=== PATIENT | female | born 1975 | race Caucasian/White ===

== ENCOUNTER 2024-03-24 11:16 | Observation (INO) ==
--- NOTE | 2024-03-24 12:15 | Emergency Department Note ---
HPI - General Adult General Chief complaint: General Complaint Stated complaint: NECK PAIN Source: patient Mode of arrival: ambulance History of Present Illness HPI narrative: Patient is a chronically ill-appearing 48-year-old white female that presented today with multiple complaints including pain to her neck. Patient recently had a neck surgery she says a few weeks ago in [facility] states she has continued to have pain to the area. She also has chronic urinary bladder infections as she does have a chronic indwelling catheter. The patient does not appear to be acutely ill but did appear to generally not feel well today. She is in no acute distress at this time. Related Data Home Medications Medication Instructions Recorded Confirmed clonazepam 0.5 mg tablet 0.5 mg PO TID 12/03/23 12/03/23 gabapentin 300 mg capsule 300 mg PO TID 12/03/23 12/03/23 hydroxyzine pamoate 25 mg capsule 25 mg PO TID 12/03/23 12/03/23 levetiracetam 1,000 mg tablet 1,000 mg PO BID 12/03/23 12/03/23 quetiapine 100 mg tablet 100 mg PO DAILY 12/03/23 12/03/23 sertraline 50 mg tablet 50 mg PO DAILY 12/03/23 12/03/23 trazodone 50 mg tablet 50 mg PO DAILY 12/03/23 12/03/23 Allergies Allergy/AdvReac Type Severity Reaction Status Date / Time amoxicillin Allergy Unknown Verified 03/24/24 11:41 cefdinir (From Omnicef) Allergy Unknown Verified 03/24/24 11:41 cephalexin (From Keflex) Allergy Unknown Verified 03/24/24 11:41 ciprofloxacin (From Cipro) Allergy Unknown Verified 03/24/24 11:41 doxycycline Allergy Unknown Verified 03/24/24 11:41 levofloxacin (From Levaquin) Allergy Unknown Verified 03/24/24 11:41 metronidazole (From Flagyl) Allergy Unknown Verified 03/24/24 11:41 nitrofurantoin (From Allergy Unknown Verified 03/24/24 11:41 Macrobid) Sulfa (Sulfonamide Allergy Unknown Verified 03/24/24 11:41 Antibiotics) Review of Systems Status of ROS 10 or more systems reviewed and unremark able except as noted in history and below PFSH PFS Medical History Cancer Seizure Surgical History Hx of cholecystectomy Social History Smoking status: smoker, status unknown Exam Constitutional: abnormal general appearance (disheveled) and (chronically ill), no apparent distress and abnormal body habitus (thin) Vital Signs - 24 hr 03/24/24 11:20 03/24/24 12:00 03/24/24 12:30 Temperature 100 F H Pulse Rate 120 H 118 H 112 H Respiratory Rate 22 17 17 Blood Pressure 101/60 118/54 115/63 Pulse Oximetry 96 98 98 Oxygen Delivery Me thod Room Air Room Air Room Air 03/24/24 13:00 03/24/24 13:30 03/24/24 14:00 Temperature Pulse Rate 103 H 107 H 100 H Respiratory Rate 16 16 16 Blood Pressure 106/54 109/52 98/47 Pulse Oximetry 98 98 97 Oxygen Delivery Me thod Room Air Room Air Room Air 03/24/24 14:30 Temperature Pulse Rate 107 H Respiratory Rate 18 Blood Pressure 104/69 Pulse Oximetry 98 Oxygen Delivery Me thod Room Air Neck/C-Spine: Patient is in with cervical collar in place as well as Steri-Strips to the front of her neck from previous surgery Chest: inspection of chest normal Respiratory: breath sounds equal bilaterally and normal respiratory effort Cardiovascular: normal heart rate noted and regular rhythm noted Course Consultations Consultation #1: concha vargas for admission Time: 14:30 Consultation #2: Dr. Hylton for admission, pt to be admitted to Observation Vital Signs Vital signs: Vital Signs Temperature 100 F H 03/24/24 11:20 Pulse Rate 120 H 03/24/24 11:20 Respiratory Rate 22 03/24/24 11:20 Blood Pressure 101/60 03/24/24 11:20 Pulse Oximetry 96 03/24/24 11:20 Oxygen Delivery Method Room Air 03/24/24 11:20 Temperature 100 F H 03/24/24 11:20 Pulse Rate 107 H 03/24/24 14:30 Respiratory Rate 18 03/24/24 14:30 Blood Pressure 104/69 03/24/24 14:30 Pulse Oximetry 98 03/24/24 14:30 Oxygen Delivery Method Room Air 03/24/24 14:30 Medical Decision Making Lab Data Lab results reviewed: Yes I reviewed the patient's lab results Labs: Lab Results 03/24/24 03/24/24 Range/Units 12:35 14:10 WBC 12.9 H (4.3-9.3) K/uL RBC 3.9 L (4.00-5.50) M/uL Hgb 11.1 L (12.5-15.8) gm/dL Hct 33.7 L (35.9-46.7) % MCV 85.4 (81.0-93.7) fl MCH 28.2 (27.6-32.2) pg MCHC 33.0 L (33.1-35.3) g/dl RDW 15.8 H (11.4-14.2) % Plt Count 250 (152-353) K/uL MPV 7.1 (6.9-10.8) fl Gran % 78.0 H (47.8-71.3) % Lymph % (Auto) 12.3 L (20.0-43.0) % [place] % (Auto) 9.1 (3.6-9.8) % Eos % (Auto) 0.5 (0.4-2.8) % Baso % (Auto) 0.1 (0.1-0.85) Lymph # (Auto) 1.6 (1.1-3.1) [place] # (Auto) 1.2 (1.1-3.1) Eos # (Auto) 0.1 (0.0-0.2) Baso # (Auto) 0.0 (0.0-0.1) Absolute Gran (auto) 10.1 H (2.3-6.0) PT 15.2 H (12.1-15.0) SECONDS PT Normal Control 13.7 INR 1.14 APTT 30.3 (23.9-36.7) SECONDS Sodium 136 (136-145) mmol/L Potassium 3.2 L (3.6-5.2) mmol/L Chloride 101.0 (98-107) mmol/L Carbon Dioxide 25 (21-32) mmol/L Anion Gap 10.0 (4-14) mEq/L BUN 12 (7-18) mg/dL Creatinine 0.7 (0.6-1.3) mg/dL Estimated GFR 106.0 (>59.9) Glucose 90 (70-110) mg/dL Lactic Acid 1.0 (0.27-1.43) mmol/L Calcium 9.2 (8.5-10.1) mg/dL Total Bilirubin 0.58 (0.0-1.0) mg/dL AST 32 (15-37) U/L ALT 40 (30-65) U/L Alkaline Phosphatase 132 (50-136) U/L Total Protein 7.0 (6.4-8.2) g/dL Albumin 3.1 L (3.4-5.0) g/dL Urine Color Yellow (STRAW/YELL.) Urine Appearance Hazy (CLEAR) Ur Specific [place] 1.015 (1.001-1.035) Urine Protein Negative (NEGATIVE) Urine Glucose (UA) Normal (NORMAL) Urine Ketones Negative (NEGATIVE) Urine Occult Blood Trace (NEG - TRACE) Urine Nitrite Positive (NEGATIVE) Urine Bilirubin Negative (NEGATIVE) Urine Urobilinogen Normal (NORMAL) Ur Leukocyte Esterase Positive (NEGATIVE) Urine RBC 5 - 10 (0 - 5) Urine WBC > 100 ( 0 - 5) Ur Epithelial Cells Few (Few/HPF) Amorphous Sediment Negative (Negative) Urine Bacteria Moderate (Negative) Urine Mucus Negative (Negative) Urine Trichomonas Negative (Negative) Urine Yeast Negative (Negative) Fluid pH 7.0 (5 - 9) Urine Opiates Screen Neg. (NEGATIVE) Urine Methadone Screen Neg. (NEGATIVE) Barbiturate Screen Neg. (NEGATIVE) Ur Phencyclidine Scrn Neg. (NEGATIVE) Amphetamines Screen Neg. (NEGATIVE) U Benzodiazepines Scrn Pos. (NEGATIVE) Urine Cocaine Screen Neg. (NEGATIVE) U Marijuana (THC) Screen Pos. (NEGATIVE) Imaging Data Chest x-ray: My impression: EXAM: XR CHEST 1V HISTORY: coughcough; COMPARISON: None. FINDINGS: The trachea is midline. The cardiac silhouette is normal in size. Right subclavian Port-A-Cath is in place. Patchy infiltrate is at left supra hilar region. The rest of lungs are clear without focal infiltrate or effusion. The bony thorax is unremarkable. IMPRESSION: Left supra hilar bronchopneumonia. THIS IS AN ELECTRONICALLY VERIFIED FINAL REPORT 03/24/2024 1:06 PM - Electronically signed by Josette Bustillo MD CT cervical spine: Radiologist's impression: XAM: CT cervical spine without contrast HISTORY: Neck pain, recent surgery TECHNIQUE: Axial noncontrast images with coronal and sagittal reformats. Dose reduction procedures were used with mA/kv adjusted for body size. COMPARISON: 06/12/2023 FINDINGS: Patient is status post C4-5 anterior interbody fusion with hardware and a disc spacer present. This may be the recent surgery described in the history. The patient appears to be status post remote C5-6 anterior interbody fusion with hardware and disc spacer present. Prevertebral soft tissues are normal. The alignment is normal. The remainder of the vertebral bodies are of average h eight. The remainder of the disc heights are preserved. Pedicles, transverse processes, and posterior elements appear intact. The neural foramina are patent. No obvious compressive disc protrusions are identified. However it should be noted that CT is not adequate for the evaluation of cervical disc disease, cervical spinal cord disease or postsurgical complications within the spinal canal. If any of these are clinical consideration MRI cervical spine is the examination of choice. Neural foramina are patent. Joints are normal. IMPRESSION: Postsurgical changes as described above No definite acute findings or evidence for compressive disc protrusion however it should be noted that CT is not adequate for the evaluation of cervical disc disease, cervical spinal cord disease or injury, or spinal canal complications of recent surgery. If any of these entities are under clinical consideration the examination of choice is MRI cervical spine. If cervical spinal cord disease or surgical complications are consideration MRI of the cervical spine with and without contrast would be the examination of choice. 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
[2024-03-24 13:00] LABS: Potassium 3.2 mmol/L (3.6-5.2)
[2024-03-24 13:17] LABS: Basophils%(Percent) Auto 0.1 (0.1-0.85); Eosinophils#(Absolute)Auto 0.1 (0.0-0.2); Eosinophils%(Percent) Auto 0.5 % (0.4-2.8); Granulocytes#(Absolute)- Auto 10.1 (2.3-6.0); Hematocrit 33.7 % (35.9-46.7); Mean Corpuscular Volume 85.4 fl (81.0-93.7); Monocytes #(Absolute)- Auto 1.2 (1.1-3.1); Monocytes %(Percent)- Auto 9.1 % (3.6-9.8); Platelet Count 250 K/uL (152-353); White Blood Count 12.9 K/uL (4.3-9.3)
[2024-03-24 13:19] LABS: INR 1.14
[2024-03-24] MEDS ORDERED: POTASSIUM CHLORIDE 20 MEQ TAB.ER.PRT PO ONE (13:31)
[2024-03-24] MEDS: POTASSIUM CHLORIDE 20 MEQ TAB.ER.PRT PO ONE (13:31)
[2024-03-24 14:18] LABS: Specific Gravity Urine 1.015 (1.001-1.035); Urine Appearance HAZY (CLEAR); Urine Blood TRACE (NEG - TRACE); Urine Color YELLOW (STRAW/YELL.); Urine Urobilinogen Normal (NORMAL)
[2024-03-24 14:22] LABS: Urine Amorphous Sediment Negative (Negative); Urine Yeast Negative (Negative)
[2024-03-24 14:26] LABS: Amphetamine Screen Urine NEG. (NEGATIVE); Cannabinoid Screen Urine POS. (NEGATIVE); Cocaine Screen Urine NEG. (NEGATIVE); Methadone Screen Urine NEG. (NEGATIVE); Opiate Screen Urine NEG. (NEGATIVE)
[2024-03-24] MEDS ORDERED: ACETAMINOPHEN 1000 MG/100 ML 1,000 MG/100 ML IV.SOLN IV ONE (15:36)
[2024-03-24] MEDS: ACETAMINOPHEN 1000 MG/100 ML 1,000 MG/100 ML IV.SOLN IV ONE (15:38)
[2024-03-24 16:21] VITALS: BP 111/53; RESP 19; TEMP 100.8
[2024-03-24] MEDS ORDERED: KETOROLAC 30 MG/ML INJ VIAL IVP PRN (17:25)
[2024-03-24] MEDS: GABAPENTIN 300 MG CAPSULE PO SCH (18:26)
[2024-03-24] MEDS: hydrOXYzine pamoate 25 MG CAPSULE PO SCH (18:26)
[2024-03-24] MEDS: clonazePAM 0.5 MG TABLET PO SCH (18:26)
[2024-03-24 18:48] VITALS: PULSE 88
[2024-03-24] MEDS ORDERED: levETIRAcetam 500 MG TABLET PO SCH (21:00)
[2024-03-25] MEDS ORDERED: PANTOPRAZOLE SODIUM 40 MG TABLET.DR PO SCH (09:00)
[2024-03-25] MEDS ORDERED: TRAZODONE HCL 50 MG TABLET PO SCH (09:00)
[2024-03-25] MEDS ORDERED: QUETIAPINE FUMARATE 100 MG TABLET PO SCH (09:00)
[2024-03-25] MEDS ORDERED: SERTRALINE HCL 50 MG TABLET PO SCH (09:00)
[2024-03-25] MEDS ORDERED: ENOXAPARIN SODIUM 40 MG/0.4 ML SYRINGE SUBQ SCH (09:00)
== END 2024-03-24 19:25 | disposition left against medical advice (07) ==
LOC: MS 11:16 → ED 11:16 → MS 15:47
PROVIDERS: ADMIT Family Medicine; ATTEND Family Medicine
DX: Z96.0 Presence of urogenital implants; J18.9 Pneumonia, unspecified organism; M54.2 Cervicalgia; Z53.29 Procedure and treatment not carried out because of patient's decision for other reasons; N39.0 Urinary tract infection, site not specified; Z98.890 Other specified postprocedural states; R41.82 Altered mental status, unspecified; R05.9 Cough, unspecified